=== PATIENT | male | born 1955 | race Caucasian/White ===

== ENCOUNTER → 2023-12-05 13:29 | Outpatient (REF) | payer OTHER, SELFPAY | LOC: RAD 13:29 | PROVIDERS: ATTENDING PHYSICIAN Nurse Practitioner Family; FAMILY PHYSICIAN Internal Medicine | DX: J93.11 Primary spontaneous pneumothorax (principal) | CPT/HCPCS: 71046 ==

== ENCOUNTER → 2023-12-07 15:57 | Outpatient (REF) | payer OTHER, SELFPAY | LOC: HWRAD 15:57 | PROVIDERS: ATTENDING PHYSICIAN Nurse Practitioner Family; FAMILY PHYSICIAN Internal Medicine | DX: J93.11 Primary spontaneous pneumothorax (principal) | CPT/HCPCS: 71250 ==

== ENCOUNTER → 2023-12-22 08:07 | Outpatient (REF) | payer OTHER, SELFPAY | LOC: RCS 08:07 | PROVIDERS: ATTENDING PHYSICIAN Nurse Practitioner Family; FAMILY PHYSICIAN Internal Medicine | DX: G47.31 Primary central sleep apnea (principal) | CPT/HCPCS: 93306 ==

== ENCOUNTER → 2024-02-08 06:27 | Day surgery (SDC) | payer OTHER, SELFPAY | LOC: GI 06:27 | PROVIDERS: ATTENDING PHYSICIAN Specialist | DX: Z12.11 Encounter for screening for malignant neoplasm of colon (principal); Z86.010 Personal history of colon polyps; K57.30 Diverticulosis of large intestine without perforation or abscess without bleeding; K63.5 Polyp of colon | CPT/HCPCS: 45385; 88305 ==

== ENCOUNTER 2024-04-02 11:02 | Inpatient (IN) | payer OTHER, SELFPAY ==
[2024-04-02] VITALS (25 sets, daily range): BP systolic 0–159; BP diastolic 62–99; BMI 25.6
--- NOTE | 2024-04-02 07:46 | ED.GENMED ---
History of Present Illness
General
Chief Complaint: Breathing Problem
Source: patient
Time Seen by Provider: 04/02/24 07:36
History of Present Illness
History of Present Illness:
68-year-old male with past medical history of spontaneous pneumothorax 3 months ago on the right side presenting back to the ER today for evaluation after he woke up last night feeling short of breath and some discomfort on the right side of his
chest similar to his pneumothorax 3 months ago. Patient reports that at time of his pneumothorax 3 months ago he had started feeling short of breath but still proceeded to [place] and after a day and a half skiing checked his
pulse ox and it was noted to be around 60%. He went to the local ER there where he had a chest tube placed. No complications from this pneumothorax. He followed up with pulmonology here and had pulmonary function testing just last week which was
unremarkable. Patient denies any fevers, chills, rigors, no cough, no chest pain, no palpitations.
Past History
Past History
ED Past Medical History: Other (Pneumothorax)
ED Past Surgical History: Orthopedic
Social History
Tobacco: Non-smoker
Alcohol: Occasional
Drug: None
Personal:
Living: with family
Employment: Employed
Review of Systems
Review of Systems
All Other Systems: ROS reviewed and negative except as documented in HPI and ROS
Phy Exam
Physical Exam
Physical Exam:
GENERAL: Alert , in no apparent distress
EYE: conjunctiva clear
NECK: Supple
ENT: o/p clr, mmm.
CARDIAC: Regular rate and rhythm
LUNGS: Absent lung sounds on the right, speaking full sentences, no acute respiratory distress, clear lung sounds on the left. Pulse ox wavers between 91% and 96% on room air
NEUROLOGICAL: Alert and oriented
SKIN: Warm and dry, skin intact.
MUSCULOSKELETAL: well perfused.
PSYCH: Normal and appropriate interaction.
Scores
Heart Failure Risk
Heart Failure Risk Score: Not Applicable
Heart Score for Chest Pain Patients
STEMI patient?: Not applicable
Withdrawal Assessment of Alcohol
Withdrawal Assessment Completed?: Not applicable
Course
Orders/Labs/Results
Orders:
Orders
04/02/24 07:42
Cardiac Monitoring- Treatment ONCE
CR Chest - 2 Views Urgent
Comment:
Reason For Exam: SOB, no lung sounds on right, hx PTX
04/02/24 07:48
Basic Metabolic Panel Urgent
Complete Blood Count/With Diff Urgent
PTT Urgent
Prothrombin Time Urgent
04/02/24 08:04
Consult Interventional Radiology [IRAD CONSULT] Urgent
Consulting Provider: Rahat Abdullahi
Was physician already notified: Yes
Reason for Consult/Procedure: Chest Tube
Acknowledgement that appropriate orders are entered: Yes
04/02/24 09:17
Fentanyl Citrate/Pf [Sublimaze] 100 mcg .ROUTE .STK-MED ONE
Midazolam HCl [Versed] 2 mg .ROUTE .STK-MED ONE
04/02/24 09:27
Lidocaine 2% [Xylocaine 2% Mdv] 20 ml .ROUTE .STK-MED ONE
04/02/24 09:58
Chest Tube As Directed
Location: right
To suction: Yes
Suction to __ centimeters of water: -20
May ambulate with suction off?: Yes
Comment: RECORD OUTPUT FROM CHEST TUBE EVERY SHIFT
04/02/24 10:16
Ketorolac [Toradol] 30 mg .ROUTE .STK-MED ONE
04/02/24 10:38
Oxycodone [Roxicodone] 5 mg PO NOW STA
04/02/24 10:39
Admit/Transfer Patient As Directed
Co-Sign Provider:
Level of Care: Inpatient admission
Assign to:: IMU- Intermediate Care
Physician / Group: mooney/hospitalist
Diagnosis: tension ptx
Reason for Hospitalization: tension pneumothorax
Expected length of stay greater than two midnights?: Yes
ELOS- Estimated Length of Stay in days: 3
I certify the patient meets the requirements for IP care: Yes
04/02/24 10:40
Code Status As Directed
Resuscitation Status: Full Code
Abnormal Lab Results
04/02/24
07:48
MCHC 32.8 L g/dL
(33.0-37.0)
MPV 10.7 H fL
(7.4-10.4)
Absolute Neuts (auto) 7.6 H 10^3/uL
(1.4-6.5)
Absolute Monos (auto) 0.7 H 10^3/uL
(0.1-0.6)
Neutrophils % 79.1 H %
(42.2-75.2)
Lymphocytes % 12.4 L %
(20.5-51.1)
Carbon Dioxide 31 H mmol/L
(22-30)
Glucose 154 H mg/dl
(70-99)
04/02/24 07:48
04/02/24 07:48
Vital Signs
Initial and Last Documented VS:
Initial Vital Signs
Temp Pulse Resp BP Pulse Ox
97.6 F 107 18 158/93 93
04/02/24 07:21 04/02/24 07:21 04/02/24 07:21 04/02/24 07:21 04/02/24 07:21
Last Documented Vital Signs
Temp Pulse Resp BP Pulse Ox
98.1 F 80 20 141/75 99
04/02/24 09:55 04/02/24 10:25 04/02/24 10:25 04/02/24 10:25 04/02/24 10:25
Water Quality Control Engineer consulted with Physician
Water Quality Control Engineer consulted with physician?: Yes
Name of Physician Consulted: Yoly
MDM/Problems Addressed
Differential Diagnosis Includes:
Pneumothorax, pneumonia, PE, effusion
MDM/Problems Addressed:
68-year-old male presenting emergency department for evaluation of shortness of breath and some mild discomfort on the right, states this feels similar to when he was diagnosed with a spontaneous pneumothorax 3 months ago. Based off patient's
physical exam he does have absent lung sounds within the next to mid lung on the right. High suspicion for recurring pneumothorax. Patient currently hemodynamically stable. Anticipate needing a chest tube. Disposition pending
Chronic conditions affecting care: Other (Previous history of pneumothorax)
*Radiology
Radiology exam reviewed: preliminary read by ED provider (Large right sided PTX)
*Pulse Oximetry
Patient hypoxic: yes
*Rock Duster Interpretation
Rate: normal
Rhythm: sinus
*Critical Care Note
Total Time (30-74mins, 75-104mins- exclusive of procedures): 30
comment:
Critical care statement: A total of 30 minutes of critical care time was provided for this patient. This includes management of unstable vital signs, evaluation of the patient at bedside, reviewing the patient's pertinent medical records, discussion
with consultants, review of old EKGs and review of pertinent medical records. This time with separate from time utilized to perform the aforementioned documented procedures
Patient Management
Discussion with other providers: Hospitalist, Paymaster Of Purses and Radiologist
Escalation/DeEscalation of care consider admission/obs:
Following chest x-ray I notified interventional radiology about the large right-sided pneumothorax. They will get the patient to IR for stat chest tube. I also received notification from our radiologist, Dr. Cullen, about the large right-sided
pneumothorax
Hospitalist team notified and accepts for continued evaluation and treatment
ED Attending Note
-
Portions of this chart may have been created with voice recognition software.� Occasional wrong word or��sound alike� substitutions may have occurred due to the inherent limitations of voice recognition software.
Discharge Plan
Departure
Patient Disposition: Admit
Date of Disposition: 04/02/24
Time of Disposition: 09:35
Presentation/result/management discussed w/ accepting MD/DO: Hospitalist
Discharge Problem:
Spontaneous pneumothorax
Interventions
Interventions:
*Risk Screen - Suicide Last Done: 04/02/24 07:21
*General Assessment Last Done: 04/02/24 07:21
*Neglect/Abuse Screening Last Done: 04/02/24 07:21
ED- Fall Risk Assessment Last Done: 04/02/24 07:46
*ED COVID-19 Vaccine History Last Done: 04/02/24 07:46
ED- Cardiac Assessment Last Done: 04/02/24 07:46
ED- Pulmonary Assessment Last Done: 04/02/24 07:46
[2024-04-02 07:58] LABS: % Basophils 0.4 % (0-2); % Eosinophils 0.9 % (0-6); % Immature Granulocytes 0.3 % (0-0.5); % Lymphocytes 12.4 % (20.5-51.1); % Monocytes 6.9 % (1.7-9.3); % Neutrophils 79.1 % (42.2-75.2); Absolute Eosinophils 0.1 10^3/uL (0-0.7); Absolute Lymphocytes 1.2 10^3/uL (1.2-3.4); Absolute Monocytes 0.7 10^3/uL (0.1-0.6); Absolute Neutrophils 7.6 10^3/uL (1.4-6.5); Hemoglobin 15.4 g/dL (13.0-18.0); Mean Corp Hgb Conc. 32.8 g/dL (33.0-37.0); Mean Corpuscular Hgb 30.4 pg (27.0-31.0); Mean Corpuscular Volume 92.9 fL (80.0-94.0); Mean Platelet Volume 10.7 fL (7.4-10.4); Nucleated Red Blood Cells % 0 % (-); Platelet Count 173 10^3/uL (130-400); Red Blood Cell Count 5.06 10^6/uL (4.70-6.10); Red Cell Dist. Width 12.9 % (11.5-14.5); White Blood Cell Count 9.6 10^3/uL (4.8-10.8)
[2024-04-02 08:08] LABS: INR 1.05; PT 13.7 Sec (11.4-14.6)
[2024-04-02 08:09] LABS: APTT 25.1 Sec (23.4-35.0)
[2024-04-02 08:20] LABS: Blood Urea Nitrogen 17 mg/dl (9-20); Calcium 9.2 mg/dl (8.4-10.2); Carbon Dioxide 31 mmol/L (22-30); Chloride 102 mmol/L (98-107); Estimated Creatinine Clearance 80 ml/min; Glucose 154 mg/dl (70-99); Potassium 4.6 mmol/L (3.5-5.1); Sodium 139 mmol/L (135-145); eGFR > 60.00
--- NOTE | 2024-04-02 09:59 | W.PN.UPDATE ---
Update Note
Progress Note Update
Right chest tube placed 14 Fr Thalquik. Patient tolerated well, lung is nearly completely reexpanded.
--- NOTE | 2024-04-02 10:43 | HPS.HSE ---
Family Physician
-
Family Physician: Gabriel Thomas
Chief Complaint
-
Shortness of breath
History of Present Illness
68-year-old male past medical history of STEWART on CPAP who is presented from home with complaint of shortness of breath. Patient said he was on his CPAP and overnight he was feeling short of breath. He felt like shortness of breath is similar to his
previous episode where he was found to have a pneumothorax. Patient is similar episode 3 months ago during his ski trip in [place] where he received chest tube and subsequently afterwards it was removed. In the ER today patient was found to have a
large tension/spontaneous pneumothorax and underwent chest tube placement by interventional radiology. Patient is complaining of pain with deep inspiration and a chest tube site. No other complaints. Denies any chest pain, nausea, vomiting,
headache, diarrhea. Denies history of smoking. States he follows with doctors pulmonary Dr. Castillo for his CPAP and also followed up at [facility] for second opinion and he was told he has blebs and prone to pneumothorax and should undergo pleurodesis.
Medical History
Past Medical History
Past Medical History: Reports Other
Additional Past Medical History:
Pneumothorax
Squamous cell cancer of skin
Past Surgical History: Reports Other
Additional Past Surgical History:
Squamous cell cancer of skin removal
Social History
Tobacco: Non-smoker
Alcohol: Occasional
Personal:
Living: With Family
Family History
Family History: Not pertinent
Allergies / Home Medications
Allergies reflects when Allergies were last updated in [employer].
Home Medications with original date entered in [employer]
Allergy/Medication List:
Allergies
Allergy/AdvReac Type Severity Reaction Status Date / Time
No Known Allergies Allergy Verified 04/02/24 07:20
Home Medications
ibuprofen 200 mg tablet 200 mg PO DAILYPRN PRN mild pain 04/02/24
therapeutic multivitamin 1 tab PO DAILY 04/02/24
Review of Systems
-
History Source: Patient
A 12 point ROS was completed and negative except as noted: Yes
Physical Exam
Vital Signs
Vital Signs
Temp Pulse Resp BP Pulse Ox
98.1 F 80 20 141/75 99
04/02/24 09:55 04/02/24 10:25 04/02/24 10:25 04/02/24 10:25 04/02/24 10:25
Physical Exam
General: Well Developed, Well Nourished and No Apparent Distress
HEENT: NormoCephalic, Moist mucous membranes and Atraumatic
Respiratory: Other (Right-sided chest tube noted)
Cardiac: S1/S2 and Regular Rhythm; No Murmur or Rub
GI: Soft, Non Tender, Non Distended and Normal Bowel Sounds; No Organomegaly
Rectal: Deferred by Provider
Musculoskeletal: No Clubbing, No Cyanosis and No Edema
Skin: No Rash
Neuro: Awake, Alert, Oriented, AO x 3, No Motor Deficits and Nonfocal/grossly intact
Psych: Calm
Laboratory Results
-
04/02/24 07:48
04/02/24 07:48
Laboratory Results
PT 13.7 Sec (11.4-14.6) 04/02/24 07:48
INR 1.05 04/02/24 07:48
APTT 25.1 Sec (23.4-35.0) 04/02/24 07:48
Impression/Plan
-
##Total right spontaneous/mild questionable tension pneumothorax
#History of spontaneous pneumothorax
Status post emergent chest tube placement by [facility]
Pain control
Continue with oxygenation for nitrogen washout
Chest tube management per pulmonary& [facility]
CXR in am
Pulmonary consultation
Hyperglycemia
Check a1c in am
STEWART on CPAP at home
Hold off on CPAP for now
History of skin squamous cell carcinoma
DVT prophylaxis-Lovenox
Discussed with spouse at bedside in detail
Discussed with ER team
[2024-04-02] MEDS: ROXICODONE 5 MG PO ×2 (10:58→19:33)
--- NOTE | 2024-04-02 13:01 | PTCARENOTE ---
Received patient on admission from ED via stretcher with R sided chest tube. Patient able to ambulate from stretcher to bed without difficulty and without SOB. Chest tube to -20cm suction; POx 98% on 2l n/c. See worklisti for full assessment, vital
signs, admission information. at bedside.
--- NOTE | 2024-04-02 16:05 | PTCARENOTE ---
Patient c/o pain at chest tube insertion site and is requesting Motrin. He states he prefers to take mortin as that is what has worked for him best in the past. Current parameters read: if unrelieved by APAP. Suazo text sent to Dr Michael to adjust
parameters.
[2024-04-02] MEDS: MOTRIN 200 MG PO (16:29)
--- NOTE | 2024-04-02 16:48 | CON.PUL ---
Consultation
Consultation Request
Date/Time Consultation Requested: 04/02
Date/Time Consultation Performed: 04/02
Reason for Consultation: Spontaneous pneumothorax
Medical History
-
History of Present Illness:
History obtained from the patient, at the bedside and reviewing both inpatient and outpatient records. Patient is a 68-year-old male with history of spontaneous right pneumothorax which occurred while skiing in [place] November 27, 2023. He
actually woke up prior to his flying out to [place] with back pain at that time. He went on his trip, skied, developed increased shortness of breath and chest pain. He had woken up in [facility] with his BiPAP in place with increased symptoms. He
went to the hospital in [place], had a right chest tube placed, removed 11/29/2023. Patient was in his usual state of health until yesterday at around 12:30 in the morning, woke up again at 12:30 AM with his BiPAP in place. He felt the pressures
were high, took off the mask, walk to the bathroom and went back to sleep. He had some mild shortness of breath. During the morning he also had some shortness of breath, difficult to take a deep breath in. He proceeded to go to the gym, did
walking/treadmill exercises. Because of persistent symptoms he brought himself into [facility], where upon arrival afebrile, pulse 107, breathing 18, blood pressure 158/93, 93% chest x-ray was obtained which revealed large right-sided
pneumothorax, likely greater than 50%. Chest tube was placed and patient admitted for further management. Presently he rates his pain as 4/10 at chest tube site. His shortness of breath has improved. Chest tube without any air leak, there is
respiratory variation.
Of note, he recently flew 2 weeks ago to [place] but at that time did not have any symptoms
.
PMH: History of testicular torsion, BPH, sleep apnea on CPAP therapy, spontaneous right pneumothorax requiring chest tube November 2023 while in [place]. History of colon polyps.
Past Medical History
Past Medical History: None (See above)
Past Surgical History: None (See above)
Social History
Tobacco: Non-smoker (Describes secondhand smoke exposure)
Alcohol: Occasional
Drug: None
Personal:
Living: With Family
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
Family History
Family History: Other (Family history negative for lung disease. 2 children are healthy. Father age 59 from coronary disease, mother at age 89 from heart disease. Father also had colon cancer. There is a family history of breast cancer
in sister)
Allergies / Home Medications
Allergies
Allergy/AdvReac Type Severity Reaction Status Date / Time
No Known Allergies Allergy Verified 04/02/24 07:20
Home Medications
�Medication �Instructions �Recorded �Confirmed �Last Taken �Type
ibuprofen 200 mg tablet 200 mg PO DAILYPRN PRN mild pain 04/02/24 04/02/24 04/02/24 History
therapeutic multivitamin 1 tab PO DAILY 04/02/24 04/02/24 04/02/24 History
Review of Systems
-
All other systems: Negative unless noted
Vitals / Labs / Diagnostic Testing
Vital Signs
Temp Pulse Resp BP Pulse Ox
98.1 F 74 17 139/66 96
04/02/24 12:00 04/02/24 16:00 04/02/24 16:00 04/02/24 16:00 04/02/24 16:00
Lab Data
04/02/24 07:48
04/02/24 07:48
Laboratory Results
04/02/24
07:48
PT 13.7
INR 1.05
APTT 25.1
Diagnostic Testing:
Physical Exam
-
HEENT: Normocephalic and Anicteric
Cardiovascular: S1/S2, Murmur (n), Rub (n) and Peripheral Edema (n)
Respiratory: Wheeze (n), Rales (n), Rhonchi (n) and Non-Labored Respirations
GI: Soft, Non Distended and Non Tender
Neurology: Awake, Alert and No Motor Deficits
General: Comfortable
Assessment
-
Assessment: 68-year-old male with a past medical history of right-sided pneumothorax (diagnosed November 2023), history of hemothorax, sleep apnea on CPAP, colon polyps can be BPH and hearing loss who presents with SOB and found to have right-sided
pneumothorax. Initial CXR on 04/02/2024 showed virtual complete total right pneumothorax with possible minor tension component. Of note [place] was not significantly short of breath at
that time. He has continued to use his CPAP nightly.IR consulted and a small bore 14 Fr Thal-Quick chest tube was inserted and connected to negative suction. Repeat CXR shows complete resolution of right-sided pneumothorax. Pulmonary consulted
for additional management/recommendations.
Patient follows with us in the [facility] office with Dr. Slade, last office visit on 03/26/2024. Patient relates recently diagnosed with a spontaneous pneumothorax while in [place] on 11/27/2023. He had woken up in the middle of the night with back pain
at that time and CXR revealed a right-sided spontaneous pneumothorax requiring a chest tube which was in place for about 2 days. Alpha-1 antitrypsin levels were being considered. There is no family or personal history of pneumothorax, no recent
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 He otherwise is being followed due to STEWART on ASV. His initial HST was in May 2019 showing mild STEWART with NNACIE of 11.3 events per hour with a O2 sandra of 78%. Last full
PFT on 03/26/2024 showing a mild obstructive lung defect with preserved gas exchange capacity.
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
Impression:
#Recurrent right-sided primary spontaneous pneumothorax -patient has no evidence of emphysema or bullae on last CT chest; unknown etiology of current PTX (?CPAP related)
#STEWART on CPAP on ASV (baseline HST showed mild STEWART with NANCIE of 11.3 events/hr with sandra SpO2 78%)
Plan:
- Chest tube placed by IR today to recheck CXR and maintain on negative suction -20 cmH2O
- Serial CXR
-Will consider thoracic surgery for evaluation of VATS with pleurodesis. This may be able to be done as an outpatient depending on clinical course
- Maintain SpO2 >90-94% with supplemental O2 --> use 4L/min to maintain resorption of PTX
- Avoid incentive spirometer as the positive inspiratory pressure can exacerbate/worsen his pneumothorax
- prn nebulized bronchodilators
- Replete electrolytes with K>4, Mg>2
- Maintain euglycemia with goal BG >100 and <180
- DVT ppx
Pulmonary service will continue to follow along.
Total time spent today was 45 minutes for this encounter. Time includes reviewing laboratory test/imaging results, reviewing pertinent medical records, obtaining and reviewing medical history, performing an appropriate exam, ordering medications,
tests and procedures. Time also includes documentation of this encounter, coordinating patient care and communicating with other healthcare professionals. Total time does not include separately billed tests performed on this date of service.
Data:
CXR 04-02-2024:
Virtual complete total right pneumothorax with possible minor tension component.
[2024-04-02] MEDS: LOVENOX 40 MG SC (17:17)
[2024-04-03] VITALS (32 sets, daily range): BP systolic 93–155; BP diastolic 58–80
[2024-04-03] MEDS: ROXICODONE 5 MG PO ×5 (00:42→21:07)
--- NOTE | 2024-04-03 01:42 | PTCARENOTE ---
Pt having complains of pain at chest tube site, prn medication given. Pt has no other complaints at this time. Assessment care and vitals as charted.
[2024-04-03 05:20] LABS: % Basophils 0.6 % (0-2); % Eosinophils 3.4 % (0-6); % Immature Granulocytes 0.2 % (0-0.5); % Lymphocytes 20.4 % (20.5-51.1); % Monocytes 11.5 % (1.7-9.3); % Neutrophils 63.9 % (42.2-75.2); Absolute Basophils 0.1 10^3/uL (0-0.2); Absolute Eosinophils 0.3 10^3/uL (0-0.7); Absolute Lymphocytes 1.7 10^3/uL (1.2-3.4); Absolute Monocytes 0.9 10^3/uL (0.1-0.6); Absolute Neutrophils 5.2 10^3/uL (1.4-6.5); Hematocrit 45.2 % (39.0-52.0); Hemoglobin 15.4 g/dL (13.0-18.0); Mean Corp Hgb Conc. 34.1 g/dL (33.0-37.0); Mean Corpuscular Hgb 30.7 pg (27.0-31.0); Mean Platelet Volume 10.2 fL (7.4-10.4); Nucleated Red Blood Cells % 0 % (-); Platelet Count 158 10^3/uL (130-400); Red Blood Cell Count 5.02 10^6/uL (4.70-6.10); Red Cell Dist. Width 12.9 % (11.5-14.5); White Blood Cell Count 8.2 10^3/uL (4.8-10.8)
[2024-04-03 05:51] LABS: Blood Urea Nitrogen 20 mg/dl (9-20); Calcium 9.2 mg/dl (8.4-10.2); Carbon Dioxide 30 mmol/L (22-30); Chloride 103 mmol/L (98-107); Estimated Creatinine Clearance 89 ml/min; Glucose 101 mg/dl (70-99); Potassium 4.8 mmol/L (3.5-5.1); Sodium 140 mmol/L (135-145); eGFR > 60.00
[2024-04-03] MEDS: THERAGRAN 1 TABLET PO (07:52)
[2024-04-03 08:39] LABS: Glucose - Point of Care 103 mg/dl (70-99)
--- NOTE | 2024-04-03 09:16 | W.PN.PUL3 ---
Today's Communication / Plan
-
Plan to transition to waterseal at 10 PM tonight
Chest x-ray in a.m.
Potential clamping of chest tube tomorrow a.m., possible discontinuation of chest tube later tomorrow
Outpatient CT chest in 1 to 2 weeks with follow-up with [place]
Thoracic surgery evaluation, referral to [place] for possible mechanical pleurodesis depending on imaging and clinical course
Continue nonrebreather for now intermittently with nasal cannula
Assessment
-
Assessment: 68-year-old male with a past medical history of right-sided pneumothorax (diagnosed November 2023), history of hemothorax, sleep apnea on CPAP, colon polyps can be BPH and hearing loss who presents with SOB and found to have right-sided
pneumothorax. Initial CXR on 04/02/2024 showed virtual complete total right pneumothorax with possible minor tension component. Of note [place] was not significantly short of breath at
that time. He has continued to use his CPAP nightly.IR consulted and a small bore 14 Fr Thal-Quick chest tube was inserted and connected to negative suction. Repeat CXR shows complete resolution of right-sided pneumothorax. Pulmonary consulted
for additional management/recommendations.
Patient follows with us in the [facility] office with Dr. Slade, last office visit on 03/26/2024. Patient relates recently diagnosed with a spontaneous pneumothorax while in [place] on 11/27/2023. He had woken up in the middle of the night with back pain
at that time and CXR revealed a right-sided spontaneous pneumothorax requiring a chest tube which was in place for about 2 days. Alpha-1 antitrypsin levels were being considered. There is no family or personal history of pneumothorax, no recent
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 He otherwise is being followed due to STEWART on ASV. His initial HST was in May 2019 showing mild STEWART with NANCIE of 11.3 events per hour with a O2 sandra of 78%. Last full
PFT on 03/26/2024 showing a mild obstructive lung defect with preserved gas exchange capacity.
Chronic conditions INKER: Colon polyps, internal hemorrhoids, testicular torsion, cholelithiasis, BPH, sleep apnea, hearing loss, history of pneumothorax, history of hemothorax
Impression:
#Recurrent right-sided primary spontaneous pneumothorax -patient has no evidence of emphysema or bullae on last CT chest; unknown etiology of current PTX (?CPAP related)
#STEWART on CPAP on ASV (baseline HST showed mild STEWART with NANCIE of 11.3 events/hr with sandra SpO2 78%)
Plan/recommendations
Called to see patient urgently due to presyncopal symptoms, hypoxia
Chest x-ray today without pneumothorax. Repeat chest x-ray in the setting of presyncopal symptoms and hypoxia also remained stable
Wonder if there may have been a vasovagal element
Patient now in the bed, asking for breakfast. Chest exam unchanged.
There is no airleak.
Chest x-ray with adequate placement of chest tube
Stat EKG without acute findings
Blood work this morning within normal limits
Moving forward
Maintain chest tube to suction
Will plan to waterseal p.m. with plans to transition to suction if develops increased symptoms
Chest x-ray in a.m. At that time we will determine chest tube clamp and possible discontinuing of chest tube later tomorrow depending on clinical course
Wonder if flying may worsen underlying risk for pneumothorax. Patient flew to [place] 2 weeks ago
Ideally, would repeat CT chest with chest tube out.
This can be done as an outpatient.
Ideally, patient would be seen by thoracic surgery at [place] for consultation regarding mechanical pleurodesis depending on imaging and clinical course
DVT prophylaxis: Pharmacological and mechanical
Reviewed at length with nursing, at bedside, respiratory care, patient
Will follow-up
Data:
CXR 04-02-2024:
Virtual complete total right pneumothorax with possible minor tension component.
Subjective Data
-
Date of Service:
Date of Service: April 03, 2024
Subjective:
Patient seen and examined earlier this morning, feeling well. Pain is controlled. At that time, denies any cough, hemoptysis, lightheadedness, dizziness. I was called back to see patient urgently after being in the chair for about 20 minutes,
developed acute diaphoresis, lightheadedness. Systolic pressure went to 98 at that time. Patient was brought back to the bed, desaturated requiring 6 L. Upon my arrival, he felt improved, comfortable, denied chest pain, chest tightness. Asking
for breakfast
Objective Data
Data Reviewed
Vital Signs / I&O / Oxygen:
Vital Signs
Temp Pulse Resp BP Pulse Ox
98.0 F 62 16 140/76 97
04/03/24 07:10 04/03/24 06:00 04/03/24 06:00 04/03/24 06:00 04/03/24 06:00
Intake and Output
04/02/24 04/03/24 04/04/24
06:59 06:59 06:59
Intake Total 480 / 480
Output Total 673 / 673
Balance -193 / -193
SaO2 97
Nasal Cannula flow liters per 2
minute
Physical Exam
General: Comfortable
HEENT: Normocephalic and Anicteric
Cardiovascular: S1-S2, Regular Rhythm, Murmur (2/6 systolic murmur), Peripheral Edema (n) and Calf Tenderness (n)
Respiratory: Wheeze (n), Crackles (n), Rhonchi (n), Non-Labored Respirations, Stridor (n), Crepitus (n), Chest Tube (No airleak, there is respiratory variation with fluid in the tube) and Other (Decreased breath sounds right side)
GI: Soft, Non Distended and Non Tender
Neurology: Awake, Alert and No Motor Deficits
Skin: Cyanosis (n), Jaundice (n) and Rash (n)
Labs/Micro/Reports
Lab Data
04/03/24 05:08
04/03/24 05:08
[2024-04-03 09:26] LABS: Glycohemoglobin (HgbA1c) 5.4 % (4.0-5.6)
--- NOTE | 2024-04-03 09:51 | PTCARENOTE ---
Assumed care of patient at beginning of this shift from previous RN with O2 2l n/c maintained with POx 94-95%; R sided chest tube to -20cm suction. Lungs diminished on R side with no crepitus noted; dressing intact. Patient requested to get OOB to
chair; assist x2 d/t chest tube and monitor wires. Patient then rang call pantoja at approximately 08:20 after being OOB for a short time c/o being diaphoretic and lightheaded. Noted to be diaphoretic on his head, back and chest. POx noted to be
86-88% on 2l n/c. Oxygen increased to 6L n/c; POx 93%. BP dropped to 93/75 from 155/71. Patient assisted back to bed x2 assist and stated he did not feel lightheaded at that time. [place] text sent to Dr Espino from patient's room to come assess.
Accu check 103. Stat CXR ordered and done. Respiratory therapist placed patient on 100% NRB as per Dr Espino's request. He read CXR at bedside and stated no change. EKG done as ordered. Patient then requested to eat breakfast. Dr Espino stated
patient may go on nasal cannula to eat then back to NRB. Resp therapist placed patient on 15L midflow while eating; this RN replaced NRB when he was finished. Patient's came during episode when patient being placed back to bed; remains at
bedside.
--- NOTE | 2024-04-03 11:18 | PTCARENOTE ---
Confirmed with Dr Espino that oxygen can be weaned. Respiratory therapist in room to switch patient from NRB to midflow.
--- NOTE | 2024-04-03 12:51 | W.PN.HOSP.TC ---
Today's Communication/Plan
-
pain control
Waterseal tonight
Oxygen
Assessment / Plan
Assessment / Plan
##Total right spontaneous pneumothorax likely 2/2 ? CPAP
#History of spontaneous pneumothorax
Status post emergent chest tube placement by [facility] on 04/02/24
Pain control
Continue with oxygenation for nitrogen washout
Chest tube management per pulmonary& [facility]
CXR in am
Plan for waterseal tonight.
Pulmonary recs
OP CTS eval for pleurodiesis
Hyperglycemia
Check a1c at 5.4
STEWART on CPAP at home
Hold off on CPAP for now
History of skin squamous cell carcinoma
DVT prophylaxis-Lovenox
Discussed with spouse at bedside in detail
Anticipated Discharge: > 48 hours
Subjective/Interval History
-
Date of Service: April 03, 2024
Earlier with hypotension while oob and hypoxic
back in bed and bp stabilized
reading book
on NRB
Objective Data
-
Labs:
Laboratory Results
04/03/24
05:08
WBC 8.2
Hgb 15.4
Hct 45.2
Plt Count 158
Sodium 140
Potassium 4.8
Chloride 103
Carbon Dioxide 30
BUN 20
Creatinine 0.9
Glucose 101 H
Calcium 9.2
Vital Signs:
Vital Signs
Temp Pulse Resp BP Pulse Ox
98.2 F 65 22 135/72 100
04/03/24 11:47 04/03/24 10:00 04/03/24 10:00 04/03/24 10:00 04/03/24 10:00
I&O
04/02/24 04/03/24 04/04/24
06:59 06:59 06:59
Intake Total 480 / 480 360 / 360
Output Total 673 / 673
Balance -193 / -193 360 / 360
[2024-04-03] MEDS: LOVENOX 40 MG SC (17:48)
[2024-04-03] MEDS: MOTRIN 200 MG PO (18:27)
--- NOTE | 2024-04-03 23:55 | PTCARENOTE ---
Addendum entered by Mena Emery RN 04/04/24 02:15:
Pt having periods of spo2 dropping to 88% on 2L NC while sleeping, Pt showing no distress. Oxygen upped to 4L spo2 now at 96% respiration even unlabored.
Original Note:
Per order chest tube disconnected from suction at 2200. Pt has been tolerating well, spo1 94% 2L respirations even and unlabored.
[2024-04-04] VITALS (10 sets, daily range): BP systolic 110–155; BP diastolic 65–77; BMI 26.2
[2024-04-04] MEDS: ROXICODONE 5 MG PO (04:40)
[2024-04-04] MEDS: MOTRIN 200 MG PO ×2 (08:04→14:09)
[2024-04-04] MEDS: THERAGRAN 1 TABLET PO (08:05)
--- NOTE | 2024-04-04 10:45 | W.PN.PUL3 ---
Today's Communication / Plan
-
Remove chest tube today
Outpatient CT chest in 1 to 2 weeks with follow-up with [place]
Thoracic surgery evaluation, referral to [place] for possible mechanical pleurodesis
Patient is free to go home assuming he can ambulate without dizziness, chest pain or shortness of breath and as long as resting SaO2 is >95% on room air. Otherwise if saturations are <96% on room air at rest then he needs a walking pulse oximetry
prior to discharge.
No additional recommendations at this time from pulmonary service. Pulmonary service will now sign off. Please reconsult if there are any additional questions/concerns, or if patient's respiratory status deteriorates.
Assessment
-
Assessment: 68-year-old male with a past medical history of right-sided pneumothorax (diagnosed November 2023), history of hemothorax, sleep apnea on CPAP, colon polyps can be BPH and hearing loss who presents with SOB and found to have right-sided
pneumothorax. Initial CXR on 04/02/2024 showed virtual complete total right pneumothorax with possible minor tension component. Of note he [place] 8000 [place] was not significantly short of breath at
that time. He has continued to use his CPAP nightly.IR consulted and a small bore 14 Fr Thal-Quick chest tube was inserted and connected to negative suction. Repeat CXR shows complete resolution of right-sided pneumothorax. Pulmonary consulted
for additional management/recommendations.
Patient follows with us in the [facility] office with Dr. Slade, last office visit on 03/26/2024. Patient relates recently diagnosed with a spontaneous pneumothorax while in [place] on 11/27/2023. He had woken up in the middle of the night with back pain
at that time and CXR revealed a right-sided spontaneous pneumothorax requiring a chest tube which was in place for about 2 days. Alpha-1 antitrypsin levels were being considered. There is no family or personal history of pneumothorax, no recent
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 He otherwise is being followed due to STEWART on ASV. His initial HST was in May 2019 showing mild STEWART with NANCIE of 11.3 events per hour with a O2 sandra of 78%. Last full
PFT on 03/26/2024 showing a mild obstructive lung defect with preserved gas exchange capacity.
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
Impression:
#Recurrent right-sided primary spontaneous pneumothorax -patient has no evidence of emphysema or bullae however with small subpleural bleb adjacent to R-major fissure last CT chest with few other small blebs in RLL; unknown etiology of current PTX
(?CPAP related)
#STEWART on CPAP on autoSV with average EPAP of [id number] (baseline HST showed mild STEWART with NANCIE of 11.3 events/hr with sandra SpO2 78%)
Plan/recommendations
Yesterday we were called to see patient urgently due to presyncopal symptoms, hypoxia --> this has not happened today and was likely vasovagal yesterday
He is very eager to leave the hospital and wants the chest tube out
I clamped the chest tube this AM after I evaluated it on CWS with no air leak seen --> repeat CXR just done and I will remove his chest tube now
He should follow up with us in the office
Wonder if flying may worsen underlying risk for pneumothorax. Patient flew to [place] 2 weeks ago, alan in the setting of his RLL blebs
Ideally, would repeat CT chest with chest tube out - this can be done as an outpatient.
Ideally, patient would be seen by thoracic surgery at [place] for consultation regarding mechanical pleurodesis depending on imaging and clinical course
Chemical pleurodesis is also an option, and I discussed this with the patient today however the pt and wish to 'leave the hospital ADOLFO and discuss future directions/plan in the office with Dr. Slade and they are thinking about seeing another
pulmonary doctor at [place].'
I advised to the pt not to use the CPAP for minimum of 2 weeks, and to wait until he is seen by us in the [facility] office before resuming his CPAP.
DVT prophylaxis: Pharmacological and mechanical
Reviewed at length with nursing, at bedside, respiratory care, patient
Chest tube to be removed, and patient is free to go home assuming he can ambulate without dizziness, chest pain or shortness of breath and as long as resting SaO2 is >95% on room air. Otherwise if saturations are <96% on room air at rest then he
needs a walking pulse oximetry prior to discharge. We will arrange for outpatient follow-up with our office.
No additional recommendations at this time from pulmonary service. Pulmonary service will now sign off. Thank you for allowing us to be involved in the care of this patient. Please reconsult if there are any additional questions/concerns, or if
patient's respiratory status deteriorates.
Total time spent today was 35 minutes for this encounter. Time includes reviewing laboratory test/imaging results, reviewing pertinent medical records, obtaining and reviewing medical history, performing an appropriate exam, ordering medications,
tests and procedures. Time also includes documentation of this encounter, coordinating patient care and communicating with other healthcare professionals. Total time does not include separately billed tests performed on this date of service.
Data:
CXR 04-04-2024:
Right chest tube in stable position. No evidence for right-sided pneumothorax.
Minimal left basilar atelectasis.
CXR 04-02-2024:
Virtual complete total right pneumothorax with possible minor tension component.
Subjective Data
-
Date of Service:
Date of Service: April 04, 2024
Chief Complaint: Pulmonary Follow Up
Subjective:
Chest x-ray this morning shows no evidence of pneumothorax. Chest tube is to waterseal this morning with no air leak seen. Patient has had no acute events reported from overnight. When I saw the patient he was doing well, very eager to leave the
hospital, at bedside. At baseline he is a very active man and he wants to get up out of bed. Yesterday he had a dizziness/hypoxia episode when he stood up so nursing staff is trying to make sure that he does not stand up without assistance.
Patient currently denies chest pain, shortness of breath, headache, fevers or chills.
Review of Systems
General: Other (Negative unless mentioned above)
Objective Data
Data Reviewed
Vital Signs / I&O / Oxygen:
Vital Signs
Temp Pulse Resp BP Pulse Ox
97.9 F 77 18 137/75 95
04/04/24 07:23 04/04/24 10:00 04/04/24 10:00 04/04/24 10:00 04/04/24 10:00
Intake and Output
04/03/24 04/04/24 04/05/24
06:59 06:59 06:59
Intake Total 480 / 480 560 / 560
Output Total 673 / 673 372 / 372 300 / 300
Balance -193 / -193 188 / 188 -300 / -300
SaO2 95
Nasal Cannula flow liters per 4
minute
Physical Exam
General: Respiratory Distress (n) and Comfortable
HEENT: Normocephalic and Anicteric
Cardiovascular: S1-S2, Regular Rhythm, Murmur (2/6 systolic murmur), Peripheral Edema (n) and Calf Tenderness (n)
Respiratory: Wheeze (n), Crackles (n), Rhonchi (n), Non-Labored Respirations, Stridor (n), Crepitus (n), Chest Tube (No airleak, there is respiratory variation with fluid in the tube) and Other (Decreased breath sounds right side)
GI: Soft, Non Distended and Non Tender
Neurology: AO x 3 and Tremors (negative)
Skin: Warm, Dry, Cyanosis (n), Jaundice (n) and Rash (n)
Labs/Micro/Reports
Lab Data
04/03/24 05:08
04/03/24 05:08
--- NOTE | 2024-04-04 12:36 | W.PN.HOSP.TC ---
Addendum entered and electronically signed by Daniel Michael MD 04/04/24 18:43:
Atelectasis
Acute hypoxic respiratory failure
Original Note:
Today's Communication/Plan
-
Pulm recs
OOB
wean o2
Assessment / Plan
Assessment / Plan
##Total right spontaneous pneumothorax likely 2/2 ? CPAP
#History of spontaneous pneumothorax
#Acute hypoxic resp insuffiency
Status post emergent chest tube placement by [facility] on 04/02/24
Pain control
Continue with oxygenation and start weaning
Chest tube management per pulmonary& [facility]
CXR this am with Right chest tube in stable position with no evidence for pneumothorax.
on waterseal. clamp and DC CTS? will defer to pulm
Pulmonary recs
OP CTS eval for pleurodiesis
Hyperglycemia
Check a1c at 5.4
STEWART on CPAP at home
Hold off on CPAP for now
History of skin squamous cell carcinoma
DVT prophylaxis-Lovenox
Discussed with spouse at bedside in detail
Anticipated Discharge: Within 24 hours
Subjective/Interval History
-
Date of Service: April 04, 2024
Wants to get oob
want to get chest tube OUT jaya
on 3-4L o2 wtih sats around 97%
Objective Data
-
Vital Signs:
Vital Signs
Temp Pulse Resp BP Pulse Ox
97.9 F 77 18 137/75 93
04/04/24 11:11 04/04/24 10:00 04/04/24 10:00 04/04/24 10:00 04/04/24 10:30
I&O
04/03/24 04/04/24 04/05/24
06:59 06:59 06:59
Intake Total 480 / 480 560 / 560
Output Total 673 / 673 372 / 372 600 / 600
Balance -193 / -193 188 / 188 -600 / -600
Physical Exam
-
General: Well Developed and No Apparent Distress
HEENT: Normocephalic, Atraumatic, Moist Mucous Membranes and Oxygen
Respiratory: Chest Tubes (R side )
Cardiac: Regular Rhythm and S1/S2; Negative Murmur, Rub or Gallop
GI: Soft, Nontender, Nondistended and Normal Bowel Sounds; Negative Organomegaly
Rectal: Deferred by Provider
Musculoskeletal: No Clubbing, No Cyanosis and No Edema
Skin: Negative Rash
Neuro: Awake, AO x 3, No Motor Deficits and Nonfocal/Grossly Intact
Psych: Calm
--- NOTE | 2024-04-04 12:52 | PN.CDI ---
CDI
- -
CDI:
Physician Documentation Request
Admit Date: 04/02/24 11:02
Dear Doctor Alec,
Please review the following and provide your response in the progress notes.
Clinical Indicators:
Pt admitted with Spontaneous Pneumothorax with possible component of tension
Progress note 04/04,' Acute hypoxic resp insuffiency ...Continue with oxygenation and start weaning...on 3-4L o2 wtih sats around 97%...'
Patient care note 04/03 @ 951, ' 08:20 after being OOB for a short time c/o being diaphoretic and lightheaded. Noted to be diaphoretic on his head, back and chest. POx noted to be 86-88% on 2l n/c. Oxygen increased to 6L n/c; POx 93%... Respiratory
therapist placed patient on 100% NRB as per Dr Espino's request....patient may go on nasal cannula to eat then back to NRB. Resp therapist placed patient on 15L midflow while eating; this RN replaced NRB when he was finished.....'
Per see documented Vital signs below
04/02/24
07:39 04/02/24
08:51 04/02/24
09:01
Pulse 108 99
Resp Rate 26
04/02/24
09:15 04/02/24
09:20 04/03/24
08:22
Pulse 100
Resp Rate 27 28
04/03/24
15:39 04/03/24
16:16
Flow liters per minute # 12 10
Oxygen Mode of Delivery Midflow Nasal
Cannula Midflow Nasal
Cannula
04/03/24
16:40 04/03/24
17:15 04/03/24
17:52
Flow liters per minute # 8 6 4
Oxygen Mode of Delivery Midflow Nasal
Cannula Midflow Nasal
Cannula Midflow Nasal
Cannula
Clarify which of the following accurately represents the patient's respiratory status:
Acute Hypoxic respiratory failure
Hypoxia Only
Other
Additional information for Respiratory Failure:
Recognized criteria for Respiratory Failure (Source: [employer] Hospitalist Aug 2013)
ABGs: (1 or more) Symptoms Please indicate type if known
1. p)2 <60 or RA SPO2 <91% on RA 1. Tachypnea, SOB, dyspnea Hypoxic
2. pCO2 50 and pH <7.35 2. Use of accessory muscles Hypercapnic
3. pO2 decrease of pCO2 increase by 3. Pallor or cyanosis Hypoxic and Hypercapnic
10 mmHg from baseline if known 4. Anxiety or restlessness Unable to determine
5. Unable to speak in full sentences
Supplemental O2 of > 40% (5LPM) Intubation is not required
Use of terms such as suspected, likely, concern for, or probable (associated with a specific diagnosis that is being evaluated, monitored, or treated as if it exists) are acceptable and can be coded in the inpatient setting, when documented at the
time of discharge.
Thank you,
Maggie Mcbride RN
CDI Specialist
[place] Text
Please use your independent medical judgment in providing your response.
--- NOTE | 2024-04-04 13:07 | PN.CDI ---
CDI
- -
CDI:
Physician Documentation Request
Admit Date: 04/02/24 11:02
Dear Doctor Alec,
Please review the following and provide your response in the progress notes.
Clinical Indicators:
The diagnosis of Atelectasis was included in the signed CXR's x 2 on 04/03.
Additional clinical indicators in the chart include:
Pt with spontaneous Pneumothorax s/p chest tube / OOB encouraged
CXR 04/03 , ' Minor bibasilar atelectasis....'
Please indicate in your progress notes if you are in agreement that the above diagnosis is valid for this patient:
____ - Atelectasis is a valid diagnosis (Please include it in your progress notes)
____ - Atelectasis is not a valid diagnosis for this patient
____ - Other
Use of terms such as suspected, likely, concern for, or probable are acceptable for a diagnosis that is being evaluated, monitored or treated as if it exists and can be coded in the inpatient setting, when documented at the time of discharge.
Thank you,
Maggie Mcbride RN
CDI Specialist
[place] Text
Please use your independent medical judgment in providing your response.
--- NOTE | 2024-04-04 17:04 | W.PN.UPDATE ---
Update Note
Progress Note Update
Right-sided chest tube removed at bedside. No immediate complications were seen. Chest tube insertion site was cleaned with ChloraPrep after chest tube removal, and covered with petroleum gauze, 4 x 4 gauze and Tegaderm. Advised patient to keep
it dry for the next 48 hours, and asked bedside RN to send patient home with multiple supplies that he can keep the area clean as well and covered. Advised the patient to not use CPAP for at least until he sees us in the office and at least for
minimum of 2 weeks. Instructed to call our office immediately or return to the ER if he has any right-sided chest pain, shortness of breath, shoulder pain or symptoms that represent his prior pneumothorax events. Patient and verbalized
understanding and I answered all their questions.
--- NOTE | 2024-04-04 18:00 | W.DCSUMMARY ---
Discharge Summary
Discharge Data
Date of Admission: 04/02/24
Date of Discharge: 04/04/24
-
Pending Results: No
Hospital Course
68-year-old male past medical history of pneumothorax was presenting from home with shortness of breath. Patient stated he woke up in the middle of the night feeling shortness of breath. Patient was using his CPAP has history of sleep apnea. Upon
admission patient x-ray with severe right-sided pneumothorax and underwent emergent [employer] chest tube placement. Post chest tube placement patient with reexpansion of the lung. Patient was admitted to IMU. Patient was started on oxygen for nitrogen
washout. Patient had an episode with hypotension and hypoxemia which was a brief event which resolved with rest and nonrebreather mask was applied. Patient with not severe pain at chest tube site. Pulmonary was following the patient. Patient
chest tube was eventually placed on waterseal on 04/03. Repeat chest x-ray without any pneumothorax. Chest tube was eventually removed by pulmonary at bedside on 04/04. Patient did well post chest tube removal and was not hypoxic and was ambulating
without difficulty. It was suspected patient with blebs and CPAP leading to pneumothorax. Patient was recommended to hold and not use CPAP until seen and evaluated by pulmonary in the outpatient setting. Also recommended outpatient discussion at
[facility] for pleurodesis as he has already seen them in the past. Patient be discharged home.
Discharge Plan
-
Patient Disposition: Home (Routine Discharge)
Discharge Diagnosis/Procedures: Right side spontaneous pneumothorax
Condition: Fair
Diet: As tolerated
Activity: With assistance
Driving Restrictions: No driving for 24 hours
Activity Restrictions/Additional Instructions:
DO NOT to use CPAP until you see Dr. Rizzo in office.
Referrals:
Gabriel Thomas MD [Family Provider] -
Jonathan Slade MD [Active] -
(appt with [place] or [facility] in 2-[address] chest, high res images without contrast in 1-2 weeks)
Prescriptions:
Continued
therapeutic multivitamin Tablet
1 tab PO DAILY
ibuprofen 200 mg Tablet
200 mg PO DAILYPRN PRN (Reason: mild pain)
Discharge Orders:
Discharge Patient (As Directed); Ordered 04/04/24
Ordered By: Daniel Michael
Discharge Date and Time
Discharge Date/Time: 04/04/24 18:31
Print Language: MACEDONIAN
--- NOTE | 2024-04-04 18:11 | PTCARENOTE ---
Addendum entered by Steven Bailey RN 04/04/24 18:14:
Also supplies given to patient to dress chest tube site at home.
Original Note:
Patient tolerated chest tube removal. Dressing CDI. On RA sats 94%. No discomfort. VSS. Reviewed DC packet with and patient, all questions answered. IV and tele removed. To be taken to lobby by wheelchair, will drive him home.
== END 2024-04-04 18:31 | disposition home or self-care (01) | DRG 199 ==
LOC: IMU 11:02
PROVIDERS: Physician Assistant Medical; Radiology Vascular & Interventional Radiology; ADMITTING PHYSICIAN Hospitalist; EMERGENCY PHYSICIAN Emergency Medicine; FAMILY PHYSICIAN Internal Medicine; OTHER PHYSICIAN Internal Medicine Critical Care Medicine
PROC: 0W9930Z Drainage of Right Pleural Cavity with Drainage Device, Percutaneous Approach (ICD-10-PCS; 2024-04-02)
DX: J93.0 Spontaneous tension pneumothorax (principal); J96.01 Acute respiratory failure with hypoxia; J98.11 Atelectasis; G47.33 Obstructive sleep apnea (adult) (pediatric); I95.9 Hypotension, unspecified; R73.9 Hyperglycemia, unspecified; N40.0 Benign prostatic hyperplasia without lower urinary tract symptoms; Z85.828 Personal history of other malignant neoplasm of skin
CPT/HCPCS: 32557; 71045; 71046; 80048; 82962; 83036; 85025; 85610; 85730; 93005; 99152; 99291; C1729; C1769

== ENCOUNTER → 2024-04-15 14:13 | Outpatient (REF) | payer OTHER, SELFPAY | LOC: HWRAD 14:13 | PROVIDERS: ATTENDING PHYSICIAN Nurse Practitioner Family; FAMILY PHYSICIAN Internal Medicine | DX: J93.9 Pneumothorax, unspecified (principal) | CPT/HCPCS: 71250 ==